=== PATIENT | male | born 1970 | race Caucasian/White ===

== ENCOUNTER 2017-03-31 02:43 | Inpatient (IN) | payer OTHER ==
[2017-03-31] VITALS (19 sets, daily range): BP systolic 113–174; BP diastolic 58–125; PULSE 99–134; RESP 16–32; O2SAT 91–100
[~2017-03-31] VITALS: Ht 177.8 cm; Wt 76.2 kg
[~2017-03-31 02:43] MED LIST: ALBU2.5V4 INHALATION; ALBU8.5H2 INHALATION; Albuterol 2.5 mg/3 mL Inhalation Solution NEB ONE; Albuterol-Ipratropium 3 mL Inhalation Solution ONE; BECL8.7A6 INHALATION; HYDR-4003 PO
[2017-03-31] MEDS ORDERED: Albuterol 2.5 mg/3 mL Inhalation Solution NEB ONE ×2 (02:55→05:45)
[2017-03-31] MEDS ORDERED: MethylprednisoLONE Sodium Succinate 62.5 mg/mL 2 mL Inj IVPUSH ONE (02:55)
[2017-03-31] MEDS ORDERED: Albuterol-Ipratropium 3 mL Inhalation Solution NEB ONE (02:55)
[2017-03-31 03:00] LABS: BASOPHILS % (AUTO) 0.4 % (0-3); EOSINOPHILS % (AUTO) 5.1 % (0-5); MONOCYTES % (AUTO) 7.3 % (4-12); Mean Corpuscular Hemoglobin 29.4 pg (27.0-35.0); Mean Corpuscular Volume 90.2 fL (81-100); NEUTROPHILS % (AUTO) 67.1 % (40-74); Platelet Count 380 bil/L (150-400)
--- NOTE | 2017-03-31 03:25 | ED.REPORT ---
HPI-Dyspnea / Wheezing Date of Service Mar 31, 2017 ED Provider: Tang Marin MD A 47 year old male with a history of asthma and hypertension presents to the ED complaining of respiratory distress. The pt has been experiencing increased difficulty breathing for two days, but this worsened acutely in the last two hours. He is now experiencing significant shortness of breath. Nursing Notes Stated Complaint: DIFFICULTY BREATHING Chief Complaint: Respiratory Distress Nursing Notes Reviewed: Yes Allergies: Coded Allergies: Penicillins (Verified Allergy, Severe, THROAT SWELLS SHUT, 03/20/17) Scheduled Beclomethasone Dipropionate (Qvar) 8.7 Gm Aer.w.adap 1 PUFF INHALATION BID Scheduled PRN Albuterol HFA (Proair HFA) 8.5 Gm Hfa.aer.ad 2 PUFFS INHALATION Q4H PRN PRN For Shortness of Breath Albuterol Neb Soln (Albuterol Neb Soln) 2.5 Mg/3 Ml Vial.neb 2.5 MG INHALATION Q4H PRN PRN For Shortness of Breath Hydrocodone-Acetaminophen 5-325 mg (Hydrocodone-Acetaminophen 5-325 mg) 1 Each Tablet 1-2 TABLET PO BID PRN PRN For Pain General Time Seen by MD: 02:52 Chief Complaint Shortness of breath Hx Obtained From: Patient Sudden in Onset?: No Onset Occurred: 2 days ago Symptom Duration: Since onset Recent Healthcare: No recent hospitalization, Recent doctor visit Similar Sx Previous: No Past Medical History Past Medical History Hypertension Asthma "Intestinal cyst" s/p removal Past Surgical History Removal of right "intestinal cyst" which was initially thought to be an inguinal hernia Smoking History Never Smoker Social History Alcohol Use: "Social" Drug Use: THC Other Social History: Good social support Ambulatory Status Independent Review of Systems Respiratory: Reports: Shortness of breath, Denies: Non-productive cough Musculoskeletal: Denies: Back pain, Neck pain Skin: Denies Rash Complete sys rev & neg: except as marked. GI: Denies: Abdominal pain, Vomiting Physical Exam Initial Vital Signs Vital Signs (First) Date Time Temp Pulse Resp B/P Pulse Ox O2 Delivery O2 Flow Rate FiO2 03/31/17 02:52 123 28 174/125 100 8 03/31/17 02:55 Aerosol Mask 03/31/17 02:56 36.3 Initial VS: Reviewed, Vital signs abnormal General/Constitutional: Awake, Alert Neck: Atraumatic, Supple, Full range of motion, No JVD Respiratory / Chest: Atraumatic, Breath sounds = bilat Resp Distress / Stridor: Positive: Resp distress severe tight wheezing in all lung renee tripoding using accessory muscles Cardiovascular: Heart rate NL, Regular rhythm, Heart sounds NL ENT: Atraumatic, Airway patent Mouth: Positive: Mucous membranes dry Abdomen: Atraumatic, Soft, Non-tender Back: Atraumatic, Full range of motion Lower Extremity / Pelvis / MS: Atraumatic, Full range of motion Skin: Atraumatic, Color NL, No rash, Warm, Dry Neurologic: Oriented X3, Speech NL, No motor deficits, No sensory deficits Head / Eyes: Atraumatic, Normocephalic, PERRL, EOMI Upper Extremity / MS: Atraumatic, Full range of motion Psychiatric: Affect NL, Mood NL Interpretation & Diagnostics Lab Results Interpretation Result Diagram: 03/31/17 0250 03/31/17 0250 Test 03/31/17 02:50 03/31/17 03:10 White Blood Count 13.4th/mm3 (3.8-10.1) Red Blood Count 4.89mil/mm3 (4.40-5.80) Hemoglobin 14.4g/dL (13.8-17.2) Hematocrit 44.1% (41.0-50.0) Mean Corpuscular Volume 90.2fL (81-100) Mean Corpuscular Hemoglobin 29.4pg (27.0-35.0) Mean Corpuscular Hemoglobin Concent 32.7% (32.0-37.0) Red Cell Distribution Width 14.6% (12.3-15.4) Platelet Count 380bil/L (150-400) Neutrophils (%) (Auto) 67.1% (40-74) Lymphocytes (%) (Auto) 19.9% (14-46) Monocytes (%) (Auto) 7.3% (4-12) Eosinophils (%) (Auto) 5.1% (0-5) Basophils (%) (Auto) 0.4% (0-3) Sodium Level 139mEq/L (134-144) Potassium Level 3.9mEq/L (3.5-5.2) Chloride Level 99mEq/L (97-108) Carbon Dioxide Level 27mmol/L (18-29) Blood Urea Nitrogen 20mg/dL (6-24) Creatinine 0.85mg/dL (0.76-1.27) Estimat Glomerular Filtration Rate 103mL/min (>59) Glucose Level 100mg/dL (60-99) Calcium Level 9.6mg/dL (8.5-10.1) Magnesium Level 2.0mg/dL (1.6-2.6) Total Bilirubin 0.2mg/dL (0.0-1.2) Aspartate Amino Transf (AST/SGOT) 18U/L (0-50) Alanine Aminotransferase (ALT/SGPT) 16U/L (0-44) Alkaline Phosphatase 94U/L (25-150) Troponin T 0.010ug/L (0.0-0.011) Pro-B-Type Natriuretic Peptide 24pg/mL (0-121) Total Protein 7.8g/dL (6.4-8.4) Albumin 4.2g/dL (3.4-5.0) Lactic Acid Level 1.2mmol/L (0.4-2.0) Lab Results Interpretation: Elevated white blood count, normal lactic acid X-Ray Chest Interpretation Chest Xray Interpretation: no acute findings Interpretation / Wet Read by: Wet read ED physician Re-Eval/Medical Decision Med Decision/Clinical Course 47-year-old male who presents with an acute exacerbation of asthma. He has moderately severe asthma but has never been admitted or intubated because of it. He has been using his albuterol nebulizer frequently without effect. He is not recently on any steroids. He was treated aggressively with multiple DuoNeb followed by albuterol nebulizer treatments. He was given Solu-Medrol 125 mg IV. He was given magnesium sulfate 2 g IV. Chest x-ray showed no definite infiltrate although there was some patchy density at the apex of the heart. His white count is elevated at 13,500. His lactic acid is normal. His case was discussed with Dr. Lowe and the patient will be admitted to the hospitalist service. Please see inpatient chart for details. Source of Hx: Old records Re-Evaluation/Progress #1: Time of Eval: 03:20 Patient Status: Condition improved Re-Evaluation/Progress Note: Pt rechecked, whose breathing has improved. Additional physical exam is performed. Re-Evaluation/Progress #2: Time of Eval: 05:37 Re-Evaluation/Progress Note: Pt rechecked, who is resting. His condition has improved significantly. Plan for additional nebulizer treatment is discussed. Re-Evaluation/Progress #3: Time of Eval: 06:50 Re-Evaluation/Progress Note: Pt rechecked, whose wheezing has improved. Re-Evaluation/Progress #4: Time of Eval: 07:37 Patient Status: Condition improved Re-Evaluation/Progress Note: Pt rechecked, is still wheezing. The diagnosis and plan for admission are discussed. The pt understands and agrees with the plan. All questions are addressed at this time. Counseled Regarding: Diagnosis, Lab results, Need for admission Discharge & Departure Impression: Primary Impression: Status asthmaticus Asthma severity: unspecified severity Qualified Code: J45.902 - Unspecified asthma with status asthmaticus Disposition: ADMITTED TO HOSPITAL Discharge Condition All VS Reviewed: Yes Condition: Stable Referrals: [facility] Crit Care Except Billable Proc Time Spent: 30-74 minutes Services Performed: Patient management by me, Time spent at bedside, Reviewing test results, Reviewing imaging, Discussing patient care, Documentation in record Critical Care Notes: 70 minutes of one-to-one care with this patient in status asthmaticus. Scribe Attestation Portions of this note were transcribed by Wiliam Mata. I, Dr. Marin personally performed the history, physical exam and medical decision-making; I reviewed and confirmed the accuracy of the information in the transcribed note. Signed by: Regina Pascual, 03/31/2017 and 0750. copies to: [facility] Tang Marin MD Mar 31, 2017 03:25 WILIAM MATA Mar 31, 2017 03:33
[2017-03-31 03:28] LABS: TROPONIN T 0.01 ug/L (0.0-0.011)
[2017-03-31] MEDS ORDERED: Magnesium Sulfate 4 Gm/100 mL Water Premix IV ONE (03:36)
[2017-03-31] MEDS ORDERED: Polyethylene Glycol (PEG) 17 Gm Powder PO PRN (08:15)
[2017-03-31] MEDS ORDERED: HYDROcodone-APAP 5-325 mg Tablet PO PRN ×2 (08:15→14:45)
[2017-03-31] MEDS ORDERED: Ondansetron 2 mg/mL 2 mL Inj IVPUSH PRN (08:15)
--- NOTE | 2017-03-31 08:19 | PCM.HPMED ---
Subjective Date of Service Mar 31, 2017 Primary Provider: Admitting Physician: Primary Care Physician: Jackeline Attending Physician: Chief Complaint: Worsening shortness of breath History of Present Illness: Patient is a 47-year-old male past medical history significant for asthma and hypertension presenting to the emergency room for an acute worsening of his shortness of breath over the past couple of days but most seriously over the last few hours. He notes he is actively been more short of breath than usual for the last month but over the past couple days things become more severe. He has chronic asthma generally maintained in good control with daily medication Qvar and when necessary albuterol. He noted beating more frequent administrations of albuterol which is becoming less effective especially over the past 24 hours finally prompting presentation to the emergency department. On presentation to emergency room history provided numerous interventions including high-dose steroids and magnesium conjunction with submental oxygen which helped patient to stabilize some bili continued to demonstrate significant increased work of breathing and diffuse wheezing which prompted admission for continued medical evaluation and treatment. During my evaluation of patient he is lying in hospital bed still demonstrating a significant work of breathing reported to be much improved since his presentation to hospital. Neither any recent fever chills or sweats. Reports albuterol as helped some but has not helped completely catch his breath in recent days. He has no other acute complaints at this time. His appetite has been good but currently he denies any hunger also denies any nausea or vomiting. He denies any history of seasonal allergies though he does have a family history of allergies. Review of Systems: A 10 point review of systems is conducted and entirely negative excepting pertinent positives and negatives included above history of present illness Allergies Coded Allergies: Penicillins (Verified Allergy, Severe, THROAT SWELLS SHUT, 03/20/17) Home Medications Beclomethasone Dipropionate (Qvar) 8.7 Gm Aer.w.adap 1 PUFF INHALATION BID Scheduled PRN Albuterol HFA (Proair HFA) 8.5 Gm Hfa.aer.ad 2 PUFFS INHALATION Q4H PRN PRN For Shortness of Breath Albuterol Neb Soln (Albuterol Neb Soln) 2.5 Mg/3 Ml Vial.neb 2.5 MG INHALATION Q4H PRN PRN For Shortness of Breath Hydrocodone-Acetaminophen 5-325 mg (Hydrocodone-Acetaminophen 5-325 mg) 1 Each Tablet 1-2 TABLET PO BID PRN PRN For Pain PMH Hypertension Asthma "Intestinal cyst" s/p removal Surgical History Removal of right "intestinal cyst" which was initially thought to be an inguinal hernia Family History Cardiovascular disease and seasonal allergies on both mother and father's side Social History Hx Alcohol Use: Yes (occasionally) Hx Substance Use: Yes (Marijuana) Smoking Status: Never Smoker Exam Vital Signs Vital Sign - Last Date Time Temp Pulse Resp B/P Pulse Ox O2 Delivery O2 Flow Rate FiO2 03/31/17 07:12 101 21 124/69 97 Room Air 03/31/17 06:01 3 03/31/17 02:56 36.3 General: Alert, Oriented X3, Cooperative, Moderate Distress Eyes: PERRLA, EOMI Mouth: Mucous Membranes Dry, Other (lips pursed) Chest & Lungs: Other (diffuse inspiratory and expiratory wheezes without focal consolidation or diminished breath) Cardiovascular: No Murmurs/Rubs/Gallops, Other (regular rhythm, elevated right) Abdomen: Non-tender, Non-distended Extremities: No cyanosis/clubbing/edma bilat Neurological: Grossly Neurologically Intact, Cranial Nerves 2-12 Intact Lab and Diagnostics Result Diagram: 03/31/17 0250 03/31/17 0250 Assessment & Plan 47 YO M presenting with worsening shortness of breath, treated in ER with refractory condition, admitted for further medical evaluation and treatment. #Acute respiratory failure with hypoxia and hypercapnea - We will treat underlying condition as noted below - Patient is currently in guarded condition demonstrating significant accessory respiratory muscle use - Certainly requires close medical observation, a require further intervention and ventilatory support such as BiPAP or potentially even intubation should patient's medical condition continued to decline. - Most likely cause appears reactive airway disease, though patient temperatures a mild elevation of white blood cell count, normal pro calcitonin level , and essentially normal radiologic findings are not overly suggestive of infectious process such as pneumonia which would require antibiotic therapy. - See below for plans of immediate intervention # Status Asthmaticus: - Continue Solumedrol now IV 30mg Q8H - Duonedbs PRN - Continue patient's on Qvar - Viral PCR is pending - Continue supplemental oxygen as needed # Hypertension - Pt on no home medications - HDS - Continue to monitor #Left inguinal cyst - Patient has previous history of right internal cyst which is already been surgically removed. I reviewed and confirms this was not a hernia but rather assist as he was described by surgeon - He is pending medical clearance for removal of similar cyst on left side at this time. - No plan for interventions however our evaluation during this hospitalization may suffice for hospital clearance given his young age and lack of comorbidities. Given severity of respiratory compromise and his pain patient with a greater than 2 midnights for medical stabilization and discharge . Pain Evaluation: Adequate Pain Control GI Prophylaxis: Not indicated VTE Mechanical Devices: Intermittant Pneumatic CD Resuscitation Status: CPR: Attempt Resuscitation Time spent 55 minutes Pablito Lowe DO Mar 31, 2017 08:19
--- NOTE | 2017-03-31 08:20 | DRSVH ---
PROCEDURE: X-RAY CHEST ONE VIEW, PORTABLE ([id number]) INDICATIONS: resp distress TECHNIQUE: One view of the chest was acquired. COMPARISON: None. FINDINGS: Surgical changes and devices: None. Lungs and pleura: No pleural effusions or pneumothorax. There is radiodensity at the cardiac apex wh ich may represent epicardial fat-pad, scarring or focal pneumonia. No associated effusion. Just super ior to that is soft tissue density that extends outside of the lung compatible with breast tissue. Th e right lung field is clear. Mediastinum: Mediastinal contours appear normal. Heart size is normal. Bones and chest wall: No suspicious bony lesions. Overlying soft tissues appear unremarkable. IMPRESSION: 1. Nonspecific radiodensity at the left lung base adjacent to the cardiac apex. Pneumonia versus epic ardial fat-pad, atelectasis or scarring. In absence of prior exams, further followup and clinical cor relation recommended. Note: Findings discussed with Dr. Marin in the ER at 0817 hrs. on 03/31/2017 Dictated by: Tristian Ballesteros M.D. on 03/31/2017 at 8:15 Approved by: Tristian Ballesteros M.D. on 03/31/2017 at 8:18
[2017-03-31] MEDS ORDERED: Glucose 40% Oral Gel 15 Gm Tube PO PRN (08:25)
[2017-03-31] MEDS: MethylprednisoLONE Sodium Succinate 40 mg/mL Inj IVPUSH SCH ×2 (09:18→17:02)
[2017-03-31] MEDS: Albuterol-Ipratropium 3 mL Inhalation Solution NEB SCH ×5 (09:25→23:54)
--- NOTE | 2017-03-31 09:50 | NUR ---
ADMIT Admitted a 47/M into room 3026 following report from ANILA Yanes RN. Pt A&Ox4, reports feeling exhausted as he was up all night. No audible wheezing noted. Pt on 4L 02 via NC while eating, switch back to OxyMask when done. Pt denies any SOB at this time. Req to eat and be allowed to rest. A&Ox4, denies any pain at this time. Able to transfer from stretcher to bed ind. Introduced to staff, bed/call light controls. Bed in lowest, locked position and call light in reach.
--- NOTE | 2017-03-31 10:06 | NUR ---
Admit nurse: Pt admitted with asthma, continuous pulse ox in place. Discussed med rec with pt in ED, pt verified meds. During second visit, unable to get pt to wake and answer admit questions, admit completed with medical records, primary RN aware. Allergy sticker in place, pt screens at being high risk for sleep apnea.
[2017-03-31] MEDS: Albuterol 2.5 mg/3 mL Inhalation Solution NEB PRN ×2 (11:14→15:16)
[2017-03-31] MEDS ORDERED: _HYDROcodone/APAP 5-325 mg Tablet PO PRN (14:20)
[2017-03-31] MEDS: Insulin LISPRO 300 Unit/3 mL Inj SUBQ SCH ×3 (14:46→21:00)
[2017-03-31] MEDS: Alum-Mag Hydrox-Simeth 30 mL Suspension PO PRN (18:19)
--- NOTE | 2017-03-31 18:26 | NUR ---
Resp Pt reports he is breathing much "easier" since administration of nebs and steroids. Pt's blood sugars have been elevated -290 and 270. Insulin given per sliding scale. Pt had one c/o abdominal pain and nausea, PRN antiemetic and analgesic effective. Pt on 2L via NC, CPOX in place and 02 running high 90's. Bed in lowest, locked position and call light in reach.
[2017-03-31] MEDS: Fluticasone 100 mCg Inhaler INHALATION SCH (23:18)
[2017-04-01] VITALS (14 sets, daily range): BP systolic 115–135; BP diastolic 56–81; PULSE 91–128; RESP 18–26; O2SAT 90–97
[2017-04-01] MEDS: MethylprednisoLONE Sodium Succinate 40 mg/mL Inj IVPUSH SCH ×3 (00:27→16:38)
[2017-04-01] MEDS: Albuterol-Ipratropium 3 mL Inhalation Solution NEB SCH ×5 (04:30→19:43)
--- NOTE | 2017-04-01 07:04 | NUR ---
O2 Sats On 1L most of the night, sometimes breathing fine after neb trx will take off oxygen and remain in 90's. Back on 1L this AM after coughing session.
[2017-04-01] MEDS: Insulin LISPRO 300 Unit/3 mL Inj SUBQ SCH ×4 (08:00→21:41)
[2017-04-01] MEDS: Fluticasone 100 mCg Inhaler INHALATION SCH ×3 (08:30→21:41)
[2017-04-01] MEDS: Albuterol 2.5 mg/3 mL Inhalation Solution NEB PRN ×2 (09:12→13:06)
--- NOTE | 2017-04-01 12:54 | PCM.PNMED ---
Subjective Date of Service Apr 01, 2017 Subjective He is seen today in his room to follow-up the acute bronchospasm of his long- term asthma. He also has an interesting condition that looks like a left inguinal hernia. He says he has had a prior right inguinal surgery that revealed that this condition is actually a cyst of the lower GI tract. He says he was referred to a surgeon, who he has never met, and does not know the name of, to have this removed a few days ago. 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 He wanted everything to be done by then. He does not have a primary care physician and states that he has never been to a morning nanny or assignment desk assistant for this severe asthma. He gets his inhalers by periodic ER visits. Exam Vital Signs Vital Sign - Last Date Time Temp Pulse Resp B/P Pulse Ox O2 Delivery O2 Flow Rate FiO2 04/01/17 09:12 118 26 92 Nasal Cannula 2.00 04/01/17 09:11 36.8 135/80 Intake and Output 03/31/17 03/31/17 04/01/17 Cumulative From/Thru 15:00 23:00 07:00 03/31/17 02:52 - 04/01/17 06:33 Intake Total 1072 ml 400 ml 1472 ml Balance 1072 ml 400 ml 1472 ml Intake Oral 1072 ml 400 ml 1472 ml # Voids 2 2 4 # Bowel Movements 0 0 Exam Alert and oriented without apparent distress. Heart is regularly tachycardic without murmu Lungs have significant wheezing right more than left. Abdomen there is a significant left inguinal area of swelling consistent with a hernia. He does have a scar on the right inguinal area from his previous surgery. There is no ankle edema. Lab and Diagnostics Result Diagram: 03/31/17 0250 03/31/17 0250 X-Rays, CTs and MRIs [facility] Diagnostic [place] [address] Patient Name: VIPUL GARNICA MR#: [id number] Location: [facility] [place] Ordering Phys: Tang Marin MD Date of Service: 03/31/17 0249 PROCEDURE: X-RAY CHEST ONE VIEW, PORTABLE ([id number]) INDICATIONS: resp distress TECHNIQUE: One view of the chest was acquired. COMPARISON: None. FINDINGS: Surgical changes and devices: None. Lungs and pleura: No pleural effusions or pneumothorax. There is radiodensity at the cardiac apex which may represent epicardial fat-pad, scarring or focal pneumonia. No associated effusion. Just superior to that is soft tissue density that extends outside of the lung compatible with breast tissue. The right lung field is clear. Mediastinum: Mediastinal contours appear normal. Heart size is normal. Bones and chest wall: No suspicious bony lesions. Overlying soft tissues appear unremarkable. IMPRESSION: 1. Nonspecific radiodensity at the left lung base adjacent to the cardiac apex. Pneumonia versus epicardial fat-pad, atelectasis or scarring. In absence of prior exams, further followup and clinical correlation recommended. Note: Findings discussed with Dr. Marin in the ER at 0817 hrs. on 03/31/2017 Dictated by: Tristian Ballesteros M.D. on 03/31/2017 at 8:15 Approved by: Tristian Ballesteros M.D. on 03/31/2017 at 8:18 Assessment & Plan 47 YO M presenting with worsening shortness of breath, treated in ER with refractory condition, admitted yesterday for further medical evaluation and treatment. #Acute respiratory failure with hypoxia and hypercapnea - We will treat underlying condition as noted below - Patient is currently in an improved condition without significant accessory muscle use currently - Certainly requires close medical observation, a require further intervention and ventilatory support such as BiPAP or potentially even intubation should patient's medical condition reverse and resume to decline. - Most likely cause appears reactive airway disease, though patient temperatures a mild elevation of white blood cell count, normal pro calcitonin level , and essentially normal radiologic findings are not overly suggestive of infectious process such as pneumonia which would require antibiotic therapy. - See below for plans of immediate intervention # Status Asthmaticus: - Continue Solumedrol now IV 40mg Q8H - Duonedbs PRN - Continue patient's on Qvar - Viral PCR is negative - Continue supplemental oxygen as needed # Hypertension - Pt on no home medications - HDS - Continue to monitor #Left inguinal cyst - Patient has previous history of right internal cyst which is already been surgically removed. I reviewed and confirms this was not a hernia but rather a cyst as he was described by surgeon - He is pending medical clearance for removal of similar cyst on left side at this time. - No plan for interventions however our evaluation during this hospitalization may suffice for hospital clearance given his young age and lack of comorbidities. Given severity of respiratory compromise and his pain patient with a greater than 2 midnights for medical stabilization and discharge. I have suggested to him that he may indeed be able to be out of here in the next 2 days and make it to his next scheduled work day of Monday. There is however no way that his left inguinal surgery can occur anytime soon. GI Prophylaxis: Not indicated VTE Mechanical Devices: Intermittant Pneumatic CD Resuscitation Status: CPR: Attempt Resuscitation Rubi Pearson MD Apr 01, 2017 09:28
--- NOTE | 2017-04-01 17:22 | NUR ---
Activity/Resp Patient a/o x 4, denies pain or nausea, but c/o sob. Lungs decreased bilat this a.m. receiving neb tx scheduled and PRN per RTC. Patient sleeping intermittently this a.m. Patient oob showered indep and went for a walk this afternoon, returned to room approx 1 hr later, RR 24-28 min, HR 130's, patient denied chest pain. Lungs with wheezes throughout. Neb tx given per RTC. Patient lui diet well. VSS, tele d/c'd per md orders.
[2017-04-02 00:21] VITALS: PULSE 114; RESP 18; O2SAT 96
[2017-04-02] MEDS: Albuterol-Ipratropium 3 mL Inhalation Solution NEB SCH ×4 (00:21→11:29)
[2017-04-02] MEDS: MethylprednisoLONE Sodium Succinate 40 mg/mL Inj IVPUSH SCH ×2 (00:29→08:44)
[2017-04-02 00:30] VITALS: BP 131/69; PULSE 59; RESP 20; O2SAT 96
[2017-04-02 04:54] VITALS: BP 126/64; PULSE 105; RESP 20; O2SAT 97
[2017-04-02] MEDS: Alum-Mag Hydrox-Simeth 30 mL Suspension PO PRN (05:45)
[2017-04-02 07:18] VITALS: PULSE 118; RESP 20; O2SAT 95
--- NOTE | 2017-04-02 07:19 | NUR ---
Respiratory Pt denies SOB. Tolerating activities well. No overt complications noted.
[2017-04-02] MEDS: Insulin LISPRO 300 Unit/3 mL Inj SUBQ SCH (08:00)
[2017-04-02] MEDS: Fluticasone 100 mCg Inhaler INHALATION SCH (08:44)
[2017-04-02] MEDS ORDERED: PRE20 PO (10:04)
[2017-04-02] MEDS ORDERED: BECL8.7A6 INHALATION (10:04)
[2017-04-02] MEDS ORDERED: ALBU2.5V4 INHALATION (10:04)
[2017-04-02] MEDS ORDERED: ALBU8.5H2 INHALATION (10:04)
--- NOTE | 2017-04-02 10:10 | PCM.DIMED ---
Discharge Instructions Date of Service Apr 02, 2017 Dates of Hospitalization Mar 31, 2017 at 08:37 Discharge Diagnosis Discharge Diagnosis #Acute respiratory failure with hypoxia and hypercapnea # Status Asthmaticus: # Hypertension #Left inguinal cyst Diet Discharge Diet: No restrictions Activity Discharge Activity: No restrictions Call your provider Call your provider for: Fever or Chills, Shortness of breath, Chest pain Patient Instructions Follow-up plan You need to follow up with a primary doctor right away. Please work on making an appointment starting on Monday. I would suggest you call the [facility]. You also need to start treatment for your severe Asthma with an Geometry Tutor or Route Aide. You should try to see one of those specialists in April. Follow-up with PCP in: 1 week (For preop of the left inguinal cyst) Provider: Annamarie Bob MD Follow-up in: 1 week (With a General Surgeon for the left inguinal cyst) Rubi Pearson MD Apr 02, 2017 10:10
--- NOTE | 2017-04-02 10:13 | NUR ---
Social Work: Screening / Discharge Data: Pt is a 47 y/o male admitted for status asthmaticus. Pt's PCP is not listed. Pt's insurance is self pay. EMR reviewed, D/C orders are in. Pt discussed in rounds. MD states no d/c planning needs at this time. Pt is homeless. ANALYSIS SPECIALIST left [facility] application and asked if he would like any further resources, pt declined any further needs. ANALYSIS SPECIALIST left phone number if he has any questions before d/c. No further d/c planning needs at this time. ANALYSIS SPECIALIST will continue to follow if needs arise. Assessment: Pt who is independent at baseline. Plan: Pt will return to homelessness at discharge. [facility] application given. Pt declined further needs. No further d/c planning needs at this time. ANALYSIS SPECIALIST will continue to follow if needs arise. [facility]
[2017-04-02 11:11] VITALS: BP 147/75; PULSE 96; RESP 19; O2SAT 93
[2017-04-02 11:30] VITALS: PULSE 108; RESP 20; O2SAT 89
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
--- NOTE | 2017-04-02 13:37 | PCM.DC.MED ---
Discharge Summary Date of Service Apr 02, 2017 Dates of Hospitalization Date of Hospital Admission Mar 31, 2017 at 08:37 Date of Discharge: Apr 02, 2017 Providers: Admitting Physician: Pablito Lowe DO Primary Care Physician: Jackeline Attending Physician: Pablito Lowe DO Diagnosis at Time of Discharge Diagnosis at Time of Discharge #Acute respiratory failure with hypoxia and hypercapnea # Status Asthmaticus: # Hypertension #Left inguinal cyst Procedures XRay, CTs & MRIs [facility] Diagnostic Imaging Department [place], [place] [id number] Patient Name: VIPUL GARNICA MR#: [id number] Location: [facility] Ordering Phys: Tang Marin MD Date of Service: 03/31/17 0249 PROCEDURE: X-RAY CHEST ONE VIEW, PORTABLE ([id number]) INDICATIONS: resp distress TECHNIQUE: One view of the chest was acquired. COMPARISON: None. FINDINGS: Surgical changes and devices: None. Lungs and pleura: No pleural effusions or pneumothorax. There is radiodensity at the cardiac apex which may represent epicardial fat-pad, scarring or focal pneumonia. No associated effusion. Just superior to that is soft tissue density that extends outside of the lung compatible with breast tissue. The right lung field is clear. Mediastinum: Mediastinal contours appear normal. Heart size is normal. Bones and chest wall: No suspicious bony lesions. Overlying soft tissues appear unremarkable. IMPRESSION: 1. Nonspecific radiodensity at the left lung base adjacent to the cardiac apex. Pneumonia versus epicardial fat-pad, atelectasis or scarring. In absence of prior exams, further followup and clinical correlation recommended. Note: Findings discussed with Dr. Marin in the ER at 0817 hrs. on 03/31/2017 Dictated by: Tristian Ballesteros M.D. on 03/31/2017 at 8:15 Approved by: Tristian Ballesteros M.D. on 03/31/2017 at 8:18 Brief History Patient is a 47-year-old male past medical history significant for asthma and hypertension presenting to the emergency room for an acute worsening of his shortness of breath over the past couple of days but most seriously over the last few hours. He notes he is actively been more short of breath than usual for the last month but over the past couple days things become more severe. He has chronic asthma generally maintained in good control with daily medication Qvar and when necessary albuterol. He noted beating more frequent administrations of albuterol which is becoming less effective especially over the past 24 hours finally prompting presentation to the emergency department. On presentation to emergency room history provided numerous interventions including high-dose steroids and magnesium conjunction with submental oxygen which helped patient to stabilize some bili continued to demonstrate significant increased work of breathing and diffuse wheezing which prompted admission for continued medical evaluation and treatment. During my evaluation of patient he is lying in hospital bed still demonstrating a significant work of breathing reported to be much improved since his presentation to hospital. Neither any recent fever chills or sweats. Reports albuterol as helped some but has not helped completely catch his breath in recent days. He has no other acute complaints at this time. His appetite has been good but currently he denies any hunger also denies any nausea or vomiting. He denies any history of seasonal allergies though he does have a family history of allergies. Hospital Course #Acute respiratory failure with hypoxia and hypercapnea - His functional status has improved but the wheezing and bronchospasm sound just as severe as before. He is not going to be staying in the hospital any longer, he has made that clear. - Patient is currently in an improved condition without significant accessory muscle use currently - He is discharged home in guarded condition. 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 # Status Asthmaticus: - Continue on oral prednisone taper at home. - Continue patient's on Qvar - Continue albuterol. - Strongly encouraged to make a primary care physician appointment and then allergy versus pulmonology to coordinate treatment of his severe asthma condition. # Hypertension/hyperglycemia - Blood pressure has normalized. - Mild intermittent hyperglycemia noted and so an A1c was drawn yesterday and is still pending. #Left inguinal cyst - Patient has previous history of right internal cyst which is already been surgically removed. I reviewed and confirms this was not a hernia but rather a cyst as he was described by surgeon - He is pending medical clearance for removal of similar cyst on left side at this time. - No plan for interventions however our evaluation during this hospitalization may suffice for hospital clearance given his young age and lack of comorbidities. - Encouraged to call Dr. Bob's office on Monday to make another appointment. Exam Vital Signs (Last) Date Time Temp Pulse Resp B/P Pulse Ox O2 Delivery O2 Flow Rate FiO2 04/02/17 07:18 118 20 95 Nasal Cannula 2.00 04/02/17 04:54 36.4 126/64 Exam Alert and oriented 3. Up and walking in the hallways wearing his home clothing. Heart is regular rhythm and tachycardic Lungs have heavy wheezing bilaterally. There is no ankle edema Test 03/31/17 02:50 03/31/17 03:10 04/01/17 20:30 White Blood Count 13.4th/mm3 (3.8-10.1) Red Blood Count 4.89mil/mm3 (4.40-5.80) Hemoglobin 14.4g/dL (13.8-17.2) Hematocrit 44.1% (41.0-50.0) Mean Corpuscular Volume 90.2fL (81-100) Mean Corpuscular Hemoglobin 29.4pg (27.0-35.0) Mean Corpuscular Hemoglobin Concent 32.7% (32.0-37.0) Red Cell Distribution Width 14.6% (12.3-15.4) Platelet Count 380bil/L (150-400) Neutrophils (%) (Auto) 67.1% (40-74) Lymphocytes (%) (Auto) 19.9% (14-46) Monocytes (%) (Auto) 7.3% (4-12) Eosinophils (%) (Auto) 5.1% (0-5) Basophils (%) (Auto) 0.4% (0-3) Sodium Level 139mEq/L (134-144) Potassium Level 3.9mEq/L (3.5-5.2) Chloride Level 99mEq/L (97-108) Carbon Dioxide Level 27mmol/L (18-29) Blood Urea Nitrogen 20mg/dL (6-24) Creatinine 0.85mg/dL (0.76-1.27) Estimat Glomerular Filtration Rate 103mL/min (>59) Glucose Level 100mg/dL (60-99) Calcium Level 9.6mg/dL (8.5-10.1) Magnesium Level 2.0mg/dL (1.6-2.6) Total Bilirubin 0.2mg/dL (0.0-1.2) Aspartate Amino Transf (AST/SGOT) 18U/L (0-50) Alanine Aminotransferase (ALT/SGPT) 16U/L (0-44) Alkaline Phosphatase 94U/L (25-150) Troponin T 0.010ug/L (0.0-0.011) Pro-B-Type Natriuretic Peptide 24pg/mL (0-121) Total Protein 7.8g/dL (6.4-8.4) Albumin 4.2g/dL (3.4-5.0) Procalcitonin 0.04ng/mL (0.00-0.08) Lactic Acid Level 1.2mmol/L (0.4-2.0) Hold Curry Top Tube Received (Received) Discharge Medications Discharge Medications Beclomethasone Dipropionate (Qvar) 8.7 Gm Aer.w.adap 1 PUFF INHALATION BID Prescribed by: NEHAL PEARSON MD Prednisone (PredniSONE) 20 Mg Tablet 20 MG PO BID Take one twice a day for 3 days, then 1/2 tab twice a day for three days, then 1/2 tab daily until finished. Prescribed by: NEHAL PEARSON MD As needed Albuterol HFA (Proair HFA) 8.5 Gm Hfa.aer.ad 2 PUFFS INHALATION Q4H PRN PRN For Shortness of Breath Prescribed by: NEHAL PEARSON MD Albuterol Neb Soln (Albuterol Neb Soln) 2.5 Mg/3 Ml Vial.neb 2.5 MG INHALATION Q4H PRN PRN For Shortness of Breath Prescribed by: NEHAL PEARSON MD Hydrocodone-Acetaminophen 5-325 mg (Hydrocodone-Acetaminophen 5-325 mg) 1 Each Tablet 1-2 TABLET PO BID PRN PRN For Pain Prescribed by: GONZALES WHITTINGTON MD Followup Plan Follow-up plan You need to follow up with a primary doctor right away. Please work on making an appointment starting on Monday. I would suggest you call the [facility]. 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 You should try to see one of those specialists in April. Discharge Diet: No restrictions Discharge Activity: No restrictions Follow-up with PCP in: 1 week (For preop of the left inguinal cyst) Provider: Annamarie Bob MD Follow-up in: 1 week (With a General Surgeon for the left inguinal cyst) Rubi Pearson MD Apr 02, 2017 10:10
== END 2017-04-02 11:55 | disposition home or self-care (01) | DRG 189 ==
LOC: SED 02:43 → MPC 08:37
PROVIDERS: ADMIT Family Medicine; ATTEND Family Medicine
DX: J96.01 Acute respiratory failure with hypoxia (principal); J45.902 Unspecified asthma with status asthmaticus; J96.02 Acute respiratory failure with hypercapnia; I10 Essential (primary) hypertension; R19.09 Other intra-abdominal and pelvic swelling, mass and lump

== ENCOUNTER 2017-04-16 19:49 | Emergency (ER) | payer OTHER ==
[~2017-04-16] VITALS: Ht 177.8 cm; Wt 90.9 kg
[~2017-04-16 19:49] MED LIST changes: -Albuterol 2.5 mg/3 mL Inhalation Solution NEB ONE; -Albuterol-Ipratropium 3 mL Inhalation Solution ONE; +PRE20 PO
[2017-04-16 19:51] VITALS: BP 143/102; PULSE 120; RESP 22; O2SAT 98
[2017-04-16] MEDS ORDERED: Albuterol-Ipratropium 3 mL Inhalation Solution NEB ONE ×2 (20:00→21:00)
[2017-04-16 20:12] VITALS: PULSE 123; RESP 22; O2SAT 94
--- NOTE | 2017-04-16 20:14 | ED.REPORT ---
HPI-Abd Pain M 40 and Over Date of Service Apr 16, 2017 ED Provider: Dr. Johns 47 y/o male with a hx of asthma and hypertension presents to the ED complaining of painful left inguinal cyst for over two weeks. The pt was scheduled for a surgery 2 weeks ago but it was canceled as he went into respiratory arrest due to his asthma. The pt has not rescheduled the surgery. He came to the ED today because the pain has been unbearable. The pt states he has a similar growth of the "size of a soft ball" on the right inguinal area. It was initially believed to be a hernia but was later determined to be cyst that was surgically removed. He had to get fluid removed from it a couple of times.The pt also complains of swollen left arm since the cancelled surgery two weeks ago. He states it feels "more tight and red". The pt is wheezing in the ED and was given Albuterol in triage. Nursing Notes Stated Complaint: GROIN PAIN Chief Complaint: Male Abdominal Pain Nursing Notes Reviewed: Yes Allergies: Coded Allergies: Penicillins (Verified Allergy, Severe, THROAT SWELLS SHUT, 04/16/17) Scheduled Beclomethasone Dipropionate (Qvar) 8.7 Gm Aer.w.adap 1 PUFF INHALATION BID Cephalexin (Cephalexin) 500 Mg Capsule 500 MG PO TID Prednisone (PredniSONE) 20 Mg Tablet 20 MG PO BID Take one twice a day for 3 days, then 1/2 tab twice a day for three days, then 1/2 tab daily until finished. Prednisone (PredniSONE) 20 Mg Tablet 40 MG PO DAILY Scheduled PRN Albuterol HFA (Proair HFA) 8.5 Gm Hfa.aer.ad 2 PUFFS INHALATION Q4H PRN PRN For Shortness of Breath Albuterol Neb Soln (Albuterol Neb Soln) 2.5 Mg/3 Ml Vial.neb 2.5 MG INHALATION Q4H PRN PRN For Shortness of Breath Hydrocodone-Acetaminophen 5-325 mg (Hydrocodone-Acetaminophen 5-325 mg) 1 Each Tablet 1-2 TABLET PO BID PRN PRN For Pain General Time Seen by MD: 20:13 Chief Complaint Inguinal pain left (cyst), Other Hx Obtained From: Patient Arrived By: Walk-in Sudden in Onset?: Yes Onset Occurred: More than a week ago... (2 weeks) Symptom Duration: Since onset Progression since Onset: Gradually worsening Quality: Painful Radiation: : Does not radiate Severity: Current: Severe Severity: Maximum: Severe Recent Healthcare: Recent doctor visit Similar Sx Previous: Yes Past Medical History Past Medical History Hypertension Asthma "Intestinal cyst" s/p removal Past Surgical History Removal of right "intestinal cyst" which was initially thought to be an inguinal hernia Smoking History Never Smoker Social History Alcohol Use: "Social" Drug Use: THC Other Social History: Good social support Ambulatory Status Independent Review of Systems Reports: painful left inguinal cyst Reports: left arm redness Respiratory: Reports: Wheezing Musculoskeletal: Reports: Extremity swelling (left arm) Complete sys rev & neg: except as marked. Physical Exam Initial Vital Signs Vital Signs (First) Date Time Temp Pulse Resp B/P Pulse Ox O2 Delivery O2 Flow Rate FiO2 04/16/17 19:51 36.6 120 22 143/102 98 Room Air Initial VS: Reviewed, Vital signs abnormal Head / Eyes: Atraumatic, Normocephalic Neck: Supple, Non-tender, Full range of motion Skin: Warm, Dry, No cyanosis Neurologic: Alert, Oriented, Nonfocal General/Constitutional: Awake, Alert, Cooperative Respiratory / Chest: Atraumatic, Breath sounds = bilat, No rales, No rhonchi Wheezing / Retractions: Positive: Wheezing expiratory Cardiovascular: Heart rate NL, Regular rhythm, Heart sounds NL, No gallop, No murmurs, No rubs Abdomen: Atraumatic, Soft, Non-tender Back: Atraumatic, Full range of motion, Painless range of motion Upper Extremity / MS: Atraumatic, Full range of motion, No deformity, Neurologic intact, Vascular intact Swelling and redness to post distal left arm with some warmth. Lower Extremity / Pelvis / MS: Atraumatic, No swelling, No deformity, Neurologic intact, Vascular intact Growth to left groin with tenderness and warmth. No redness. Interpretation & Diagnostics Lab Results Interpretation Result Diagram: 04/16/17201404/16/17 2015 Test 04/16/17 20:15 White Blood Count 14.4th/mm3 (3.8-10.1) Red Blood Count 4.70mil/mm3 (4.40-5.80) Hemoglobin 14.2g/dL (13.8-17.2) Hematocrit 43.9% (41.0-50.0) Mean Corpuscular Volume 93.4fL (81-100) Mean Corpuscular Hemoglobin 30.2pg (27.0-35.0) Mean Corpuscular Hemoglobin Concent 32.3% (32.0-37.0) Red Cell Distribution Width 14.7% (12.3-15.4) Platelet Count 372bil/L (150-400) Neutrophils (%) (Auto) 73.4% (40-74) Lymphocytes (%) (Auto) 14.1% (14-46) Monocytes (%) (Auto) 7.4% (4-12) Eosinophils (%) (Auto) 4.6% (0-5) Basophils (%) (Auto) 0.2% (0-3) Hold Purple Top Tube Received (Received) Hold Blue Top Tube Received (Received) Sodium Level 139mEq/L (134-144) Potassium Level 4.5mEq/L (3.5-5.2) Chloride Level 98mEq/L (97-108) Carbon Dioxide Level 26mmol/L (18-29) Blood Urea Nitrogen 19mg/dL (6-24) Creatinine 1.11mg/dL (0.76-1.27) Estimat Glomerular Filtration Rate 76mL/min (>59) Glucose Level 133mg/dL (60-99) Calcium Level 9.1mg/dL (8.5-10.1) Magnesium Level 1.9mg/dL (1.6-2.6) Hold Red Top Tube Received (Received) Hold [place] Top Tube Received (Received) Hold Curry Top Tube Received (Received) Re-Eval/Medical Decision Med Decision/Clinical Course The patient has multiple complaints. As far his left inguinal pain, he has a known cyst and needs to have surgery. There is no sign of infection over the area and no change other than increased pain per the patient. As far as his respiratory status the patient is not able to afford the inhaled steroid and so was given another course of prednisone. As far as his left arm looks like he has a mild cellulitis, he does not have any systemic signs of illness. The patient was noted to be tachycardiac which could be related to his respiratory status, his pain, and possibly mild dehydration. His tachycardia improved while here. The patient does not appear to have an acute surgical process or other condition requiring admission. Time of Eval: 22:40 Re-Evaluation/Progress Note: Rechecked pt. Discussed lab results, diagnosis and plan to discharge. Pt understands and agrees with the plan. F/U instructions and RTER warning given. All questions addressed. Counseled Regarding: Diagnosis, Lab results, Need for follow-up, When/why to return to ED Discharge & Departure Primary Impression: Ganglion cyst of left groin Additional Impressions: Left arm cellulitis Asthma exacerbation Disposition: Home Vital Signs - All Vital Signs Date Time Temp Pulse Resp B/P Pulse Ox O2 Delivery O2 Flow Rate FiO2 04/16/17 23:36 36.8 93 15 113/75 94 Room Air 04/16/17 22:45 86 14 133/86 100 Room Air 04/16/17 21:43 98 20 96 Room Air 04/16/17 20:12 123 22 94 Room Air 04/16/17 19:51 36.6 120 22 143/102 98 Room Air )( All Prior VS Reviewed: Yes Condition: Improved Patient Instructions: Ganglion Cysts (ED) Additional Instructions: Thank you for entrusting us with your care today. Call your surgeon tomorrow to reschedule your surgery. Follow up with your primary care provider for reevaluation of your asthma and cellulitis Return to the emergency department if your cellulitis does not improve or for any other new or worsening symptoms. Referrals: [facility] Scribe Attestation Portions of this note were transcribed by Rodri Samuels. I, , personally performed the history, physical exam and medical decision- making;I reviewed and confirmed the accuracy of the information in the transcribed note. Signed by Regina Reynoso. 04/16/17 23:37 Ani Johns MD Apr 16, 2017 20:14 Rodri Samuels Apr 16, 2017 22:19
[2017-04-16] MEDS ORDERED: 0.9% Sodium Chloride 1,000 ML IV ONE (21:00)
[2017-04-16] MEDS ORDERED: HYDROmorphone 0.5 mg/0.5 mL iSecure Syringe IVPUSH ONE (21:00)
[2017-04-16] MEDS ORDERED: predniSONE 20 mg Tablet PO ONE (21:00)
[2017-04-16 21:09] LABS: BASOPHILS % (AUTO) 0.2 % (0-3); EOSINOPHILS % (AUTO) 4.6 % (0-5); MONOCYTES % (AUTO) 7.4 % (4-12); Mean Corpuscular Hemoglobin 30.2 pg (27.0-35.0); Mean Corpuscular Volume 93.4 fL (81-100); NEUTROPHILS % (AUTO) 73.4 % (40-74); Platelet Count 372 bil/L (150-400)
[2017-04-16 21:18] LABS: Magnesium 1.9 mg/dL (1.6-2.6)
[2017-04-16 21:43] VITALS: PULSE 98; RESP 20; O2SAT 96
[2017-04-16 22:45] VITALS: BP 133/86; PULSE 86; RESP 14; O2SAT 100
[2017-04-16] MEDS ORDERED: PRE20 PO (23:18)
[2017-04-16] MEDS ORDERED: CEPH500C PO (23:18)
[2017-04-16 23:36] VITALS: BP 113/75; PULSE 93; RESP 15; O2SAT 94
== END 2017-04-16 23:40 | disposition home or self-care (01) ==
LOC: SED 19:49
DX: M67.48 Ganglion, other site (principal); L03.114 Cellulitis of left upper limb; J45.901 Unspecified asthma with (acute) exacerbation; I10 Essential (primary) hypertension; Z88.0 Allergy status to penicillin
CPT/HCPCS: 36415; 80048; 83735; 85025; 94640; 94664; 96361; 96374; 99284; J1170; J7030; J7620

== ENCOUNTER 2017-07-01 00:08 | Inpatient (IN) | payer OTHER ==
[~2017-07-01] VITALS: Ht 177.8 cm; Wt 81.0 kg
[2017-07-01] VITALS (23 sets, daily range): BP systolic 114–183; BP diastolic 67–121; PULSE 117–136; RESP 19–36; O2SAT 90–100
[~2017-07-01 00:08] MED LIST changes: +CEPH500C PO
[2017-07-01] MEDS ORDERED: Albuterol 2.5 mg/3 mL Inhalation Solution NEB ONE ×3 (00:12→01:20)
[2017-07-01] MEDS ORDERED: Albuterol-Ipratropium 3 mL Inhalation Solution ONE (00:12)
--- NOTE | 2017-07-01 00:18 | ED.REPORT ---
HPI-Dyspnea / Wheezing Date of Service Jul 01, 2017 ED Provider: Tang Marin MD The pt is a 47 y/o male w/ a hx of HTN and asthma presenting to the ED due to SOB onset 1599. The pt just left AMA from [facility] for similar symptoms today, went home, and had to use NEB treatment w/o relief. The pt was last hospitalized 3 months ago for similar symptoms. Nursing Notes Stated Complaint: ASTHMA ATTACK Chief Complaint: SOB Nursing Notes Reviewed: Yes Allergies: Coded Allergies: Penicillins (Verified Allergy, Severe, THROAT SWELLS SHUT, 07/01/17) Scheduled Beclomethasone Dipropionate (Qvar) 8.7 Gm Aer.w.adap 1 PUFF INHALATION BID Cephalexin (Cephalexin) 500 Mg Capsule 500 MG PO TID Prednisone (PredniSONE) 20 Mg Tablet 20 MG PO BID Take one twice a day for 3 days, then 1/2 tab twice a day for three days, then 1/2 tab daily until finished. Prednisone (PredniSONE) 20 Mg Tablet 40 MG PO DAILY Scheduled PRN Albuterol HFA (Proair HFA) 8.5 Gm Hfa.aer.ad 2 PUFFS INHALATION Q4H PRN PRN For Shortness of Breath Albuterol Neb Soln (Albuterol Neb Soln) 2.5 Mg/3 Ml Vial.neb 2.5 MG INHALATION Q4H PRN PRN For Shortness of Breath Hydrocodone-Acetaminophen 5-325 mg (Hydrocodone-Acetaminophen 5-325 mg) 1 Each Tablet 1-2 TABLET PO BID PRN PRN For Pain General Time Seen by MD: 00:11 Chief Complaint Shortness of breath Hx Obtained From: Patient Arrived By: Walk-in Sudden in Onset?: Yes Onset Occurred: 5 - 8 hours ago Symptom Duration: Since onset Recent Healthcare: No recent hospitalization, Recent doctor visit Similar Sx Previous: Yes Past Medical History Past Medical History Hypertension Asthma "Intestinal cyst" s/p removal Past Surgical History Removal of right "intestinal cyst" which was initially thought to be an inguinal hernia Reports: Tonsillectomy Smoking History Never Smoker Social History Alcohol Use: "Social" Drug Use: THC Other Social History: Good social support Ambulatory Status Independent Review of Systems Respiratory: Reports: Shortness of breath Complete sys rev & neg: except as marked. Physical Exam Initial Vital Signs Vital Signs (First) Date Time Temp Pulse Resp B/P Pulse Ox O2 Delivery O2 Flow Rate FiO2 07/01/17 00:14 36.4 128 36 183/121 93 Room Air 07/01/17 04:05 2 Initial VS: Reviewed, Vital signs abnormal Head / Eyes: Atraumatic, Normocephalic, PERRL ENT: Mucous membranes moist, Conjunctiva normal, No scleral icterus Extremities: Vascular intact, Neuro intact, No swelling, No tenderness Skin: Warm, Dry, No cyanosis Neurologic: Alert, Oriented, Nonfocal Psychiatric: Mood/affect normal, Behavior normal, Normal thought content General/Constitutional: Awake, Alert Neck: Atraumatic, Supple, Full range of motion Respiratory / Chest: Breath sounds = bilat Wheezing in all lung renee Pt is using accessory muscles to breathe Hyperventilating w/ frequent cough Cardiovascular: Regular rhythm, Heart sounds NL Heart Rate / Rhythm: Positive: Tachycardia Interpretation & Diagnostics Lab Results Interpretation Result Diagram: 07/01/176 07/01/17 0036 Test 07/01/17 00:36 White Blood Count 17.6th/mm3 (3.8-10.1) Red Blood Count 4.83mil/mm3 (4.40-5.80) Hemoglobin 14.5g/dL (13.8-17.2) Hematocrit 44.7% (41.0-50.0) Mean Corpuscular Volume 92.5fL (81-100) Mean Corpuscular Hemoglobin 30.0pg (27.0-35.0) Mean Corpuscular Hemoglobin Concent 32.4% (32.0-37.0) Red Cell Distribution Width 13.5% (12.3-15.4) Platelet Count 372bil/L (150-400) Neutrophils (%) (Auto) 77.0% (40-74) Lymphocytes (%) (Auto) 11.5% (14-46) Monocytes (%) (Auto) 8.5% (4-12) Eosinophils (%) (Auto) 2.5% (0-5) Basophils (%) (Auto) 0.2% (0-3) Sodium Level 143mEq/L (134-144) Potassium Level 3.8mEq/L (3.5-5.2) Chloride Level 98mEq/L (97-108) Carbon Dioxide Level 26mmol/L (18-29) Blood Urea Nitrogen 17mg/dL (6-24) Creatinine 0.90mg/dL (0.76-1.27) Estimat Glomerular Filtration Rate 97mL/min (>59) Glucose Level 134mg/dL (60-99) Calcium Level 9.6mg/dL (8.5-10.1) Magnesium Level 2.1mg/dL (1.6-2.6) Total Bilirubin 0.2mg/dL (0.0-1.2) Aspartate Amino Transf (AST/SGOT) 24U/L (0-50) Alanine Aminotransferase (ALT/SGPT) 25U/L (0-44) Alkaline Phosphatase 105U/L (25-150) Troponin T 0.010ug/L (0.0-0.011) Pro-B-Type Natriuretic Peptide 66pg/mL (0-121) Total Protein 8.4g/dL (6.4-8.4) Albumin 4.3g/dL (3.4-5.0) Lab Results Interpretation: Elevated white count of uncertain etiology ECG Interpretation ECG Interpretation: Rate 139 Sinus tachycardia LAD, consider L anterior fascicular bloc Abnormal R-wave progression, early transition Nonspecific T abnormalities, inferior leads Quality affected by respiratory changes Time: 00:43 Interpreted by: ED physician X-Ray Chest Interpretation Chest Xray Interpretation: Impression: No acute findings. View: Portable, 1 view Interpretation / Wet Read by: Wet read ED physician Re-Eval/Medical Decision Med Decision/Clinical Course 47-year-old male who was seen at [facility] for acute asthma attack. He was given nebulizers 2 treatments there but apparently no steroids. He left there AMA, and is not clear from the notes what the problem was. He arrives here by ambulance very short of breath. He was given multiple nebulizer treatments and IV magnesium and IV Solu-Medrol with some improvement. He was quite agitated by his respiratory distress so was given morphine and Ativan with marked improvement. Eventually cleared so he was not in respiratory distress. He is resting comfortably. He still has scattered expiratory wheezes in all lung renee. His chest x-ray is negative. I do not have an explanation for his elevated white count unless it reflects recent steroid use. I see no infectious process at this time. He will be admitted to the PCU for status asthmaticus to the hospitalist service. Source of Hx: Old records Re-Evaluation/Progress #1: Time of Eval: 03:11 Re-Evaluation/Progress Note: Pt rechecked. Pt is sleeping soundly. Pt has scattered expiratory wheezes but breathing has much improved. Re-Evaluation/Progress #2: Time of Eval: 03:55 Re-Evaluation/Progress Note: Pt rechecked. Informed pt of need for admission. Pt understands and agrees with plan for admission. All questions addressed. Consultation : Referral / Consult Name: Tim Bains MD Consulted With: Hospitalist Call Returned at: 04:13 Caramel Maker: Will see patient, Agrees with eval, Agrees with plan, Accepts admit Counseled Regarding: Diagnosis, Lab results, Need for admission Discharge & Departure Impression: Primary Impression: Status asthmaticus Asthma severity: unspecified severity Qualified Code: J45.902 - Unspecified asthma with status asthmaticus Disposition: ADMITTED TO HOSPITAL Discharge Condition All VS Reviewed: Yes Condition: Stable Referrals: NOPCP (PCP) Paloma Land MD Crit Care Except Billable Proc Time Spent: 30-74 minutes (70 minutes) Services Performed: Patient management by me, Time spent at bedside, Reviewing test results, Reviewing imaging, Discussing patient care, Documentation in record, Time with fam/surrogate Scribe Attestation Portions of this note were transcribed by Brad Ko. I, Dr. Marin personally performed the history, physical exam and medical decision-making; I reviewed and confirmed the accuracy of the information in the transcribed note. copies to: Paloma Land MD, Howard L MD Jul 01, 2017 00:18 Brad Ko Jul 01, 2017 00:24
[2017-07-01] MEDS ORDERED: MethylprednisoLONE Sodium Succinate 62.5 mg/mL 2 mL Inj IVPUSH ONE (00:25)
[2017-07-01] MEDS ORDERED: Magnesium Sulf 2 Gm/50mL Water 2 GM in IV Premix 1 EACH IV ONE (00:25)
[2017-07-01 00:48] LABS: BASOPHILS % (AUTO) 0.2 % (0-3); EOSINOPHILS % (AUTO) 2.5 % (0-5); MONOCYTES % (AUTO) 8.5 % (4-12); Mean Corpuscular Volume 92.5 fL (81-100); Platelet Count 372 bil/L (150-400)
[2017-07-01 01:15] LABS: TROPONIN T 0.01 ug/L (0.0-0.011)
[2017-07-01] MEDS ORDERED: 0.9% Sodium Chloride 1,000 ML IV ONE (01:30)
[2017-07-01 01:31] LABS: Magnesium 2.1 mg/dL (1.6-2.6)
[2017-07-01] MEDS ORDERED: Polyethylene Glycol (PEG) 17 Gm Powder PO PRN (04:20)
[2017-07-01] MEDS ORDERED: Ondansetron 2 mg/mL 2 mL Inj IVPUSH PRN (04:20)
[2017-07-01] MEDS ORDERED: Albuterol-Ipratropium 3 mL Inhalation Solution NEB PRN ×2 (04:20→08:00)
[2017-07-01] MEDS ORDERED: Alum-Mag Hydrox-Simeth 30 mL Suspension PO PRN (04:20)
--- NOTE | 2017-07-01 06:21 | PCM.HPMED ---
Subjective Date of Service Jul 01, 2017 Primary Provider: Admitting Physician: Tim Bains MD Primary Care Physician: Nopcherry Attending Physician: Maya Zapata DO Admit Status: From the Emergency Department, Full Admit, [facility] Telemetry Chief Complaint: Shortness of breathe History of Present Illness: Micheal Grimm is a 47 y/o male with Hypertension and asthma presenting to [facility] emergency department due to persistent shortness of breathe History limited to patient being partly sedated from treatment received in the emergency department. But the patient reported his symptoms started around 4 PM yesterday. He denies any coughing or fever. Patient was unclear of what set up his asthma. He tried his inhalers with no improvement. The pt just left AMA from [facility] for similar symptoms yesterday, went home, and had to use NEB treatment w/o relief. The pt was last hospitalized 3 months ago for similar symptoms. Case discussed with Dr Marin. Patient still having persistent wheezing despite receiving neb treatment, Solu-Medrol and will be admitted Review of Systems: unable to obtained due to patient being sedated Allergies Coded Allergies: Penicillins (Verified Allergy, Severe, THROAT SWELLS SHUT, 07/01/17) Home Medications From Last Discharge Summary, not yet confirmed Beclomethasone Dipropionate (Qvar) 8.7 Gm Aer.w.adap 1 PUFF INHALATION BID Prescribed by: NEHAL CORONA MD Prednisone (PredniSONE) 20 Mg Tablet 20 MG PO BID Take one twice a day for 3 days, then 1/2 tab twice a day for three days, then 1/2 tab daily until finished. Prescribed by: NEHAL CORONA MD As needed Albuterol HFA (Proair HFA) 8.5 Gm Hfa.aer.ad 2 PUFFS INHALATION Q4H PRN PRN For Shortness of Breath Prescribed by: NEHAL CORONA MD Albuterol Neb Soln (Albuterol Neb Soln) 2.5 Mg/3 Ml Vial.neb 2.5 MG INHALATION Q4H PRN PRN For Shortness of Breath Prescribed by: NEHAL CORONA MD Hydrocodone-Acetaminophen 5-325 mg (Hydrocodone-Acetaminophen 5-325 mg) 1 Each Tablet 1-2 TABLET PO BID PRN PRN For Pain Prescribed by: GONZALES WHITTINGTON MD [facility] Hypertension Asthma "Intestinal cyst" s/p removal . Surgical History Removal of right "intestinal cyst" which was initially thought to be an inguinal hernia Family History Cardiovascular disease on both mother and father's side Social History Hx Alcohol Use: Yes (states "every couple days") Hx Substance Use: Yes (Cannabis) Hx Tobacco Use: No Smoking Status: Never Smoker Living Arrangement: Alone Exam Vital Signs Vital Sign - Last Date Time Temp Pulse Resp B/P Pulse Ox O2 Delivery O2 Flow Rate FiO2 07/01/17 05:45 Supplement Oxygen 07/01/17 05:45 36.5 117 19 137/83 2.00 95 07/01/17 05:12 97 Intake and Output 06/30/17 06/30/17 07/01/17 Cumulative From/Thru 15:00 23:00 07:00 07/01/17 00:14 - 07/01/17 05:28 Intake Total 999 ml 999 ml Balance 999 ml 999 ml Intake IV Total 999 ml 999 ml Exam General: Oriented X3, Cooperative but sedated but answering yes and no questions Eyes: PERRLA, Scleral Anicteric Mouth: Mouth Normal, Mucous Membranes dry Neck: Supple, no Thyromegaly, trachea central. Chest & Lungs: Clear to auscultation & percussion with diffuse expiratory wheeze Cardiovascular: Normal S1, Normal S2, No Murmurs/Rubs/Gallops, Regular Rate/ Rhythm, (No JVD, no peripheral edema) Pulses: Radial (present and equal), Dorsalis Pedi (present and equal) Abdomen: Soft, Non-tender, Non-distended, Normoactive bowel tones. Musculoskeletal: Unremarkable. Normal range of motion, no swollen or erythematous joints Extremities: No edema, no cyanosis, no clubbing. Skin: No rashes. Warm and dry, no erythematous areas Neurological: Grossly neurologically intact, Normal Speech, Sensation Intact Lymphatic: Lymph nodes Cervical and Axillary not palpable. Lab and Diagnostics Labs Laboratory Tests Test 07/01/17 00:36 White Blood Count 17.6th/mm3 (3.8-10.1) Red Blood Count 4.83mil/mm3 (4.40-5.80) Hemoglobin 14.5g/dL (13.8-17.2) Hematocrit 44.7% (41.0-50.0) Mean Corpuscular Volume 92.5fL (81-100) Mean Corpuscular Hemoglobin 30.0pg (27.0-35.0) Mean Corpuscular Hemoglobin Concent 32.4% (32.0-37.0) Red Cell Distribution Width 13.5% (12.3-15.4) Platelet Count 372bil/L (150-400) Neutrophils (%) (Auto) 77.0% (40-74) Lymphocytes (%) (Auto) 11.5% (14-46) Monocytes (%) (Auto) 8.5% (4-12) Eosinophils (%) (Auto) 2.5% (0-5) Basophils (%) (Auto) 0.2% (0-3) Sodium Level 143mEq/L (134-144) Potassium Level 3.8mEq/L (3.5-5.2) Chloride Level 98mEq/L (97-108) Carbon Dioxide Level 26mmol/L (18-29) Blood Urea Nitrogen 17mg/dL (6-24) Creatinine 0.90mg/dL (0.76-1.27) Estimat Glomerular Filtration Rate 97mL/min (>59) Glucose Level 134mg/dL (60-99) Calcium Level 9.6mg/dL (8.5-10.1) Magnesium Level 2.1mg/dL (1.6-2.6) Total Bilirubin 0.2mg/dL (0.0-1.2) Aspartate Amino Transf (AST/SGOT) 24U/L (0-50) Alanine Aminotransferase (ALT/SGPT) 25U/L (0-44) Alkaline Phosphatase 105U/L (25-150) Troponin T 0.010ug/L (0.0-0.011) Pro-B-Type Natriuretic Peptide 66pg/mL (0-121) Total Protein 8.4g/dL (6.4-8.4) Albumin 4.3g/dL (3.4-5.0) Result Diagram: 07/01/17 0036 07/01/17 003 Assessment & Plan Micheal Grimm is a 47 y/o male with Hypertension and asthma presenting to [facility] emergency department due to persistent shortness of breathe 1. Acute Asthma exacerbation. Present on admission Likely triggered by a viral infection. Patient improving with no evidence of acute respiratory failure. - Continue Solumedrol now IV 40mg Q8H - Duonedbs PRN - Continue Qvar - Continue supplemental oxygen as needed - Viral PCR send - checking Urine drug screen 2. Sinus tachycardia. Present on admission Likely secondary to beta agonist bronchodilator therapy - monitor on telemetry - Pulmonary embolism on differential diagnosis but Well score is low 3. Leukocytosis, Acute. Present on admission Secondary to steroids patient recently received - No evidence of pneumonia or other infection 4 Hypertension Presumed stable - continue antihypertensive medications - Acetaminophen as needed for mild pain/fever/headache - Bowel regimen as needed - Antiemetic as needed Patient admitted under inpatient status with expected length of stay > 2 midnights for severity of present symptoms, complexities of treatment plan and risk for adverse event . Resuscitation Status: CPR: Attempt Resuscitation Tim Bains MD Jul 01, 2017 06:08
[2017-07-01] MEDS: Levalbuterol 1.25 mg/0.5mL Inhalation Solution NEB SCH ×7 (07:22→22:17)
--- NOTE | 2017-07-01 07:40 | NUR ---
Admit to PCC Pt. arrived via gurney from ED, to Room 2003. Lethargic answering in short sentences, following simple commands. Audible wheezing noted. Denies pain. MD at bedside to evaluate. Continuous oximetry in place, SPO2 95% on 2L NC. Tele: SR/ST Rate 119-120. Encourage to remain on bedrest. Pt. insisted to walk to bathroom, returned to bed with increase in SOB. Spo2 decreased to 91%, RT notified to eval and treat. Report given to on coming RN.
[2017-07-01] MEDS ORDERED: MethylprednisoLONE Sodium Succinate 40 mg/mL Inj IVPUSH SCH (08:30)
[2017-07-01] MEDS: MethylprednisoLONE Sodium Succinate 62.5 mg/mL 2 mL Inj IVPUSH SCH ×3 (09:04→20:12)
--- NOTE | 2017-07-01 09:20 | DRSVH ---
PROCEDURE: X-RAY CHEST ONE VIEW, PORTABLE ([id number]) INDICATIONS: dyspnea TECHNIQUE: One view of the chest was acquired. COMPARISON: [facility], CR, XR CHEST 1VW (PORTABLE), 03/31/2017, 2:44. FINDINGS: Surgical changes and devices: None. Lungs and pleura: No pleural effusions or pneumothorax. Lungs are clear. Mediastinum: Mediastinal contours appear normal. Heart size is normal. Bones and chest wall: No suspicious bony lesions. Overlying soft tissues appear unremarkable. IMPRESSION: No acute pulmonary process. Dictated by: Cindy Gregg M.D. on 07/01/2017 at 9:18 Approved by: Cindy Gregg M.D. on 07/01/2017 at 9:19
--- NOTE | 2017-07-01 10:53 | PCM.PNMED ---
Subjective Date of Service Jul 01, 2017 Subjective Patient was seen and examined today. He states that he remains short of breath and when questioned states that he has pain in his chest from breathing. He is saturating well on room air Nursing staff states no concerns. Exam Vital Signs Vital Sign - Last Date Time Temp Pulse Resp B/P Pulse Ox O2 Delivery O2 Flow Rate FiO2 07/01/17 09:30 122 24 98 Nasal Cannula 2.00 07/01/17 07:52 36.4 137/94 07/01/17 05:45 95 Intake and Output 06/30/17 06/30/17 07/01/17 Cumulative From/Thru 15:00 23:00 07:00 07/01/17 00:14 - 07/01/17 05:28 Intake Total 999 ml 999 ml Balance 999 ml 999 ml Intake IV Total 999 ml 999 ml Exam General: Somnolent, somewhat difficult to arouse but does awake to answer questions. HEENT: Normocephalic, atraumatic. External ears without defect. Pupils equal, round, and reactive to light and accommodation. Unable to keep eyes open. Neck: Supple with full range of motion. No jugular venous distension. No bruits. No lymphadenopathy or thyromegaly. Cardiovascular: Tachycardiac with a rate in the 120s with no murmurs, rubs, or gallops appreciated Pulmonary: Diffuse wheezes throughout, no crackles Abdomen: Bowel tones present. Soft, nontender, nondistended. No hepatosplenomegaly or masses appreciated. Extremities: No clubbing, cyanosis, edema, or lymphadenopathy appreciated. Skin: Patient laying uncovered in bed lower extremities cool, no rashes noted Neurological: Cranial nerves grossly intact. Normal muscle strength, tone, and bulk. Psychiatric: Alert and oriented to person, place, and time. IVs and Medications Medications Reviewed: Medications were reviewed in detail Lab and Diagnostics Result Diagram: 07/01/17 0036 07/01/17 0036 Assessment & Plan Micheal Grimm is a 47 y/o male with Hypertension and asthma presenting to [facility] emergency department due to persistent shortness of breathe Acute Asthma exacerbation. Present on admission, active -Likely triggered by a viral infection. Patient improving with no evidence of acute respiratory failure. - Continue Solumedrol IV 60mg Q6H - Xopenex PRN every hour, scheduled every 2 hours - Continue Qvar 2 puffs BID - Continue supplemental oxygen as needed - Viral PCR pending - Urine tox screen positive for amphetamines. Patient's significant other states that he takes Ritalin for ADHD Sinus tachycardia. Present on admission, active -Likely secondary to beta agonist bronchodilator therapy - Continue to monitor on telemetry Leukocytosis, Acute. Present on admission, active -White count is 17.6 today -Secondary to steroids patient recently received - No evidence of pneumonia or other infection Hypertension, chronic, not present on admission, stable - continue antihypertensive medications - Acetaminophen as needed for mild pain/fever/headache - Bowel regimen as needed - Antiemetic as needed Disposition: Patient will likely require several more days of inpatient treatment and monitoring. He is still on Q2hr breathing treatments. Patient states that he would like to be full code with CPR and intubation and would like for his girlfriend Sowmya to be the point of contact and the one to make all of his medical decisions if he is unable to make them. . Resuscitation Status: CPR: Attempt Resuscitation Attending Statement The patient was seen and examined together with Dr. Hanley on 07/01/17 and I have added additional information to the note above. Jose Carlos Hanley DO Jul 01, 2017 10:53 Maya Zapata DO Jul 01, 2017 12:22
[2017-07-01] MEDS ORDERED: METH5TAB88 PO (10:55)
--- NOTE | 2017-07-01 10:55 | NUR ---
Med Rec Med Rec completed, patient interview. patient reports that he takes Ritalin once daily in the AM, can't remember dose. [facility] listed in chart and [facility] in [place] (pharmacies confirmed by patient) have no record of ever filling Ritalin or any other medication for ADHD.
[2017-07-01] MEDS ORDERED: Levalbuterol 1.25 mg/0.5mL Inhalation Solution NEB PRN (12:20)
[2017-07-01] MEDS: Fluticasone 100 mCg Inhaler INHALATION SCH ×2 (14:42→20:13)
[2017-07-01] MEDS: Arformoterol 15 mCg/2 mL Inhalation Solution NEB SCH ×2 (17:57→20:15)
--- NOTE | 2017-07-01 18:07 | NUR ---
Respiratory: On initial assessment patient appeared to be very drowsy SpO2: low 80's and as patient was awakened he began to be tachypnic with RR high 20's. SpO2 increased to low 90's. Lung sounds tight with wheezes throughout. RT was called to assess and MD was notified. MD also notified of Tele: Sinus Tachycardia 120-130's. Neb treatments were changed and patient is now receiving scheduled Xoponex Nebs Q2 hours. Patient was placed on 2L NC. SpO2: now mid 90's on 2L NC. RR 18 while asleep to high 20's. Patient continues to be A&O X3. Uses call light for needs. Frequent rounding in place.
[2017-07-01] MEDS ORDERED: Fluticasone 100 mCg Inhaler INHALATION SCH (20:30)
[2017-07-02] VITALS (18 sets, daily range): BP systolic 124–146; BP diastolic 67–89; PULSE 85–127; RESP 17–28; O2SAT 91–96
[2017-07-02] MEDS: Levalbuterol 1.25 mg/0.5mL Inhalation Solution NEB SCH ×8 (00:38→21:45)
[2017-07-02] MEDS: MethylprednisoLONE Sodium Succinate 62.5 mg/mL 2 mL Inj IVPUSH SCH ×3 (02:26→18:09)
--- NOTE | 2017-07-02 02:35 | NUR ---
resp: pt. is breathing better, less sob, less coughing, sats 94% on 2Lo2, heart rate in 120's. pt. receiving neb tx q2hrs.
[2017-07-02 03:57] LABS: BASOPHILS % (AUTO) 0 % (0-3); EOSINOPHILS % (AUTO) 0 % (0-5); MONOCYTES % (AUTO) 3.5 % (4-12); Mean Corpuscular Hemoglobin 30.1 pg (27.0-35.0); Mean Corpuscular Volume 93.2 fL (81-100); NEUTROPHILS % (AUTO) 93.5 % (40-74); Platelet Count 350 bil/L (150-400)
[2017-07-02] MEDS: Pantoprazole 40 mg ER24 Tablet PO SCH (04:20)
[2017-07-02] MEDS: Fluticasone 100 mCg Inhaler INHALATION SCH ×2 (05:39→20:14)
[2017-07-02] MEDS: Arformoterol 15 mCg/2 mL Inhalation Solution NEB SCH ×2 (07:28→21:45)
[2017-07-02] MEDS ORDERED: Levalbuterol 1.25 mg/0.5mL Inhalation Solution NEB SCH (08:30)
[2017-07-02] MEDS ORDERED: Levalbuterol 1.25 mg/0.5mL Inhalation Solution NEB PRN (08:30)
--- NOTE | 2017-07-02 16:22 | NUR ---
Respiratory, Family Issues 0940 - Discussed his care with Dr. Zapata, Dr. Vazquez, and the rest of the multidisciplinary care team during morning rounds. Patient had asked if he could have a shower today. Checked with Dr. Zapata about this who said he could be off telemetry for a shower. 1050 - Spoke to Respiratory Therapist (RT) Nathaly Gill, who said that if he took a shower his O2 would likely need to be increased and he would have to take his time and not overexert himself. Currently on 2L of O2 via nasal cannula. 1216 - Spoke to Nathaly who said she provided detailed education to him about his asthma, medications, and needing to get pulmonology follow-up care once he discharges. She said that he did not seem to grasp the information and would need repeated education. About 1600 - Staff heard him yelling. Another nurse went into the room to find him angrily shouting at his girlfriend and telling her to leave now. She left. This nurse went in a few minutes later to check on him and he did not want to talk about the incident. Care continues.
--- NOTE | 2017-07-02 16:37 | NUR ---
Social Work- Initial Assessment Data: See Initial Assessment for additional information. Pt is a 47 year old male admitted [place] for status asthmaticus per H&P. Pt's insurance is [employer]. Pt has no PCP listed. Pt's readmit risk score is not listed at this time. FRANNIE met with pt at bedside to discuss d/c plan, SW role explained. Pt alert and oriented x3. Pt resides in his [place] in [place]. Pt has no permanent housing at this time. Pt states he is aware of local resources, he just has not been able to find an apartment because he works so often. Pt declined [facility] housing [place] Pt reports that he is looking for a PCP at this time, declined assistance. Pt is independent with ADLs and self-care. Pt has no HH or SNF history. No LTC or VA benefits. Pt has home nebulizers, unknown which company provides them. Pt declined DPOA information at bedside. SW provided d/c planning checklist, phone number, and plan on whiteboard. Pt likely to d/c home with g/f or mother to transport via POV. SW will continue to follow for needs. Assessment: Pt who is independent with ADLs and self-care Plan: Pt likely to d/c home with g/f or mother to transport via POV. SW will continue to follow for needs. ISIS Esparza Addendum: 07/02/17 at 1642 by MAHNAZ PETIT SS Amended: Links added.
--- NOTE | 2017-07-02 17:42 | PCM.PNMED ---
Subjective Date of Service Jul 02, 2017 Subjective Overnight: Breathing reported to have gotten better maintaining saturations 94% on nasal cannula though remained tachycardic. Continue to receive nebulizer treatments every 2 hours Patient seen and examined. Today patient states he would like to go home though does admit that he continues to have difficulty breathing and even minimally exerting himself. Denies chest pain or pain with respirations. Patient's girlfriend present in room at time of interview.. All questions answered. Exam Vital Signs Vital Sign - Last Date Time Temp Pulse Resp B/P Pulse Ox O2 Delivery O2 Flow Rate FiO2 07/02/17 06:24 118 07/02/17 04:30 20 96 Nasal Cannula 2.00 07/02/17 04:02 36.8 124/67 07/01/17 05:45 95 Intake and Output 07/01/17 07/01/17 07/02/17 Cumulative From/Thru 15:00 23:00 07:00 07/01/17 00:14 - 07/02/17 05:20 Intake Total 640 ml 353 ml 1992 ml Output Total 700 ml 700 ml Balance -60 ml 353 ml 1292 ml Intake Oral 640 ml 353 ml 993 ml IV Total 999 ml Output Urine Total 700 ml 700 ml # Voids 3 3 Exam General: Awake and alert laying in hospital bed in no acute distress, well- developed, appropriately interactive HEENT: Normocephalic, atraumatic. External ears without defect. Pupils equal, round, and reactive to light and accommodation. Neck: Supple with full range of motion. No jugular venous distension. Cardiovascular: Regular rate and rhythm with no murmurs, rubs, or gallops appreciated Pulmonary: Bilateral diffuse wheezes. Poor air movement. Increased respiratory effort with no use of accessory muscles Abdomen: Soft, nontender, nondistended. Bowel tones present Extremities: No clubbing, cyanosis, edema Skin: Normal temperature, turgor, and texture Neurological: Cranial nerves grossly intact. Psychiatric: Normal mood and affect. Alert and oriented to person, place, and time. IVs and Medications Medications Reviewed: Medications were reviewed in detail Lab and Diagnostics Result Diagram: 07/02/17 0335 07/02/17334 X-Rays, CTs and MRIs . X-RAY CHEST ONE VIEW, PORTABLE IMPRESSION: No acute pulmonary process. Dictated by: Cindy Gregg M.D. on 07/01/2017 Assessment & Plan Micheal Grimm is a 47 y/o male with Hypertension and asthma admitted secondary to asthma exacerbation. Hospital day 2 Acute Asthma exacerbation. Present on admission, active -Likely triggered by a viral infection. PCR positive for rhinovirus - Solumedrol IV 60mg Q8H - Xopenex PRN every 2 hour, scheduled every 3 hours - Continue Qvar 2 puffs BID - Continue supplemental oxygen as needed - Urine tox screen positive for amphetamines. Patient's significant other states that he takes Ritalin for ADHD Sinus tachycardia. Present on admission, improving -Likely secondary to beta agonist bronchodilator therapy, with concomitant viral infection -Rate slowly trending down, remaining hemodynamic state within normal limits -Continue to monitor on telemetry Leukocytosis, Acute. Present on admission, active -White count 17.6 on admission, 35.3 today -Secondary to steroids patient recently received -Pro calcitonin pending, no current indication for antibiotics -Continue to monitor Hypertension, chronic, not present on admission, stable - Currently hemodynamically stable - No home antihypertensive medications listed - Continue to monitor - Acetaminophen as needed for mild pain/fever/headache - Bowel regimen as needed - Antiemetic as needed Disposition: Patient will remain inpatient status, breathing treatments have been increased to every 3 hours. Pain Evaluation: Adequate Pain Control GI Prophylaxis: Proton Pump Inhibitor Resuscitation Status: CPR: Attempt Resuscitation Attending Statement The patient was seen and examined together with Dr. Vazquez on 07/02/17 and I have added additional information to the note above. SIGRID VAZQUEZ DO Jul 02, 2017 06:57 Maya Zapata DO Jul 02, 2017 17:47
[2017-07-02] MEDS: guaiFENesin 600 mg ER12 Tablet PO SCH (20:14)
[2017-07-03] VITALS (10 sets, daily range): BP systolic 118–142; BP diastolic 73–99; PULSE 78–125; RESP 16–22; O2SAT 88–95
[2017-07-03] MEDS: Levalbuterol 1.25 mg/0.5mL Inhalation Solution NEB SCH ×3 (00:19→07:50)
[2017-07-03] MEDS: MethylprednisoLONE Sodium Succinate 62.5 mg/mL 2 mL Inj IVPUSH SCH (00:29)
[2017-07-03 03:10] LABS: BASOPHILS % (AUTO) 0.1 % (0-3); EOSINOPHILS % (AUTO) 0 % (0-5); MONOCYTES % (AUTO) 3.7 % (4-12); Mean Corpuscular Hemoglobin 30.5 pg (27.0-35.0); Mean Corpuscular Volume 93.5 fL (81-100); NEUTROPHILS % (AUTO) 92.5 % (40-74); Platelet Count 345 bil/L (150-400)
[2017-07-03] MEDS: Arformoterol 15 mCg/2 mL Inhalation Solution NEB SCH (07:51)
[2017-07-03] MEDS ORDERED: predniSONE 20 mg Tablet PO SCH (09:20)
[2017-07-03] MEDS: guaiFENesin 600 mg ER12 Tablet PO SCH (09:26)
[2017-07-03] MEDS: Fluticasone 100 mCg Inhaler INHALATION SCH (09:26)
[2017-07-03] MEDS: Pantoprazole 40 mg ER24 Tablet PO SCH (09:27)
[2017-07-03] MEDS ORDERED: Levalbuterol 1.25 mg/0.5mL Inhalation Solution NEB PRN ×2 (12:30→14:30)
[2017-07-03] MEDS ORDERED: Levalbuterol 1.25 mg/0.5mL Inhalation Solution NEB SCH ×2 (12:30→14:30)
[2017-07-03] MEDS ORDERED: PRE20 PO (16:00)
[2017-07-03] MEDS ORDERED: PRE10 PO (16:03)
--- NOTE | 2017-07-03 16:08 | PCM.DIMED ---
Jose Carlos Hanley DO 07/03/17 1608: Discharge Instructions Date of Service Jul 03, 2017 Dates of Hospitalization Jul 01, 2017 at 04:26 Discharge Diagnosis Discharge Diagnosis COPD exacerbation Hypertension Medication Instructions Additional med instructions We're sending you home with a prednisone taper. This begins with 6 pills on the first day for 3 days, then 5 pills for 3 days, then 4 pills for 3 days, then 3 pills for 3 days, then 2 pills for 3 days, then 1 pill for 3 days. Continue to use your home albuterol inhaler and your other regularly prescribed medications as directed. Test Results Test Results Your chest x-ray did not show any signs of pneumonia. Diet Discharge Diet: Heart Healthy Activity Discharge Activity: Limited until seen by PCP Call your provider Call your provider for: Fever or Chills, Shortness of breath, Bleeding, Chest pain, Vomitting, Excessive diarrhea, Weakness (unilateral) Patient Instructions Patient Instructions We are going to make an appointment for you to see a primary care physician in the next 1-2 weeks. Please keep this appointment. Please seek medical attention if you have worsening shortness of breath. Follow-up Provider: [facility] Follow-up with PCP in: 1 week Maya Zapata DO 07/03/17 1615: Discharge Instructions Patient Instructions Patient Instructions If you notice that you have to use your nebulizers less than 6 hours apart then please come back to the ED as your asthma is starting to go out of control again. Please do not over exert yourself or participate in physical activity until you follow up with your PCP as this can also exacerbate your asthma. Attending's Statement The patient was seen and examined together with Dr. Hanley on 07/03/17 and I have added additional information to the note above. Jose Carlos Hanley DO Jul 03, 2017 16:08 Maya Zapata DO Jul 03, 2017 16:15
--- NOTE | 2017-07-03 18:02 | NUR ---
Discharge Pt discharged to home with transportation provided by his girlfriend. Pt's IV dc'd intact. Telemetry was removed and tech notified. Pt's discharge instructions, medications and follow up appointments were reviewed. All patients questions were answered and he voiced understanding. Pt's belongings were gathered for transportation with pt. Pt was escorted to lobby by COMMUNITY OUTREACH COORDINATOR, as requested, to await arrival of his girlfriend.
--- NOTE | 2017-07-03 18:22 | PCM.DC.MED ---
Discharge Summary Date of Service Jul 03, 2017 Dates of Hospitalization Date of Hospital Admission Jul 01, 2017 at 04:26 Date of Discharge: Jul 03, 2017 Providers: Admitting Physician: Tim Bains MD Primary Care Physician: Jackeline Attending Physician: Maya Zapata DO Diagnosis at Time of Discharge Diagnosis at Time of Discharge Asthma exacerbation Hypertension Procedures XRay, CTs & MRIs . X-RAY CHEST ONE VIEW, PORTABLE IMPRESSION: No acute pulmonary process. Dictated by: Cindy Gregg M.D. on 07/01/2017 ECG 12 Lead Performed 07/01/17, sinus tachycardia with rate of 139. No ST changes. Brief History Micheal Grimm is a 47 y/o male with Hypertension and asthma that presented to [facility] emergency department due to persistent shortness of breathe. History limited to patient being partly sedated from treatment received in the emergency department. But the patient reported his symptoms started around 4 PM on day of admission. He denies any coughing or fever. Patient was unclear of what set off his asthma. He tried his inhalers with no improvement. The pt just left [facility]MA from [facility] for similar symptoms day previous, went home, and had to use NEB treatment w/o relief. The pt was last hospitalized 3 months ago for similar symptoms. Case discussed with Dr Marin. Patient still having persistent wheezing despite receiving neb treatment. During his stay, patient was started on Solu-Medrol IV 60 mg every 6 hours, and was eventually transitioned to oral. He received Xopenex nebulizer treatments every 2 hours initially, but was eventually able to space them out to every 6 hours. His hypertension was controlled on his home medications during his stay. On day of discharge, 07/03/17, patient's symptoms were controlled, his vital signs were stable. He was sent home with a prednisone taper and was told to resume his albuterol inhaler and other home medications. Patient was released to resume work on 07/05/17. Hospital Course See below for detailed hospital course Acute Asthma exacerbation. Present on admission, stable -Likely triggered by a viral infection. PCR positive for rhinovirus -Patient was prescribed steroid taper upon discharge Sinus tachycardia. Present on admission, resolved -Likely secondary to beta agonist bronchodilator therapy, with concomitant viral infection Leukocytosis, Acute. Present on admission, active -White count 17.6 on admission, reported 7 on day of discharge -Secondary to steroids patient recently received Hypertension, chronic, not present on admission, stable - Currently hemodynamically stable Disposition: Home Exam Vital Signs (Last) Date Time Temp Pulse Resp B/P Pulse Ox O2 Delivery O2 Flow Rate FiO2 07/03/17 16:33 78 20 92 Room Air 78 20 07/03/17 12:14 36.7 142/90 07/03/17 11:21 1.50 07/01/17 05:45 95 Exam General: No acute distress, well-developed, well-nourished, appropriately interactive HEENT: Normocephalic, atraumatic. Neck: Supple with full range of motion. No jugular venous distension. No bruits. No lymphadenopathy or thyromegaly. Cardiovascular: Regular rate and rhythm with no murmurs, rubs, or gallops appreciated Pulmonary: Slight wheezes throughout, no rhonchi or crackles. Good air movement Abdomen: Bowel tones present. Soft, nontender, nondistended. No hepatosplenomegaly or masses appreciated. Extremities: No clubbing, cyanosis, edema, or lymphadenopathy appreciated. Skin: Normal temperature, turgor, and texture, several small healing eschar on left forearm and dorsal surface of hand. Neurological: Cranial nerves grossly intact. Normal muscle strength, tone, and bulk. Reflexes, coordination, and sensory function within normal limits. No known gait impairment. Psychiatric: Normal mood and affect. Alert and oriented to person, place, and time. Test 07/01/17 00:36 07/01/17 06:40 07/02/17 03:35 07/02/17 17:45 Magnesium Level 2.1mg/dL (1.6-2.6) Troponin T 0.010ug/L (0.0-0.011) Pro-B-Type Natriuretic Peptide 66pg/mL (0-121) Urine Opiates Screen Negative Urine Methadone Screen Negative Urine Barbiturates Screen Negative Urine Amphetamines Screen Positive Urine Benzodiazepines Screen Negative Urine Cocaine Metabolite Screen Negative Urine Cannabinoids Screen Negative Procalcitonin 0.04ng/mL (0.00-0.08) Test 07/03/17 02:50 White Blood Count 30.7th/mm3 (3.8-10.1) Red Blood Count 4.59mil/mm3 (4.40-5.80) Hemoglobin 14.0g/dL (13.8-17.2) Hematocrit 42.9% (41.0-50.0) Mean Corpuscular Volume 93.5fL (81-100) Mean Corpuscular Hemoglobin 30.5pg (27.0-35.0) Mean Corpuscular Hemoglobin Concent 32.6% (32.0-37.0) Red Cell Distribution Width 13.5% (12.3-15.4) Platelet Count 345bil/L (150-400) Neutrophils (%) (Auto) 92.5% (40-74) Lymphocytes (%) (Auto) 3.1% (14-46) Monocytes (%) (Auto) 3.7% (4-12) Eosinophils (%) (Auto) 0% (0-5) Basophils (%) (Auto) 0.1% (0-3) Band Neutrophils % 1% (1-5) Sodium Level 138mEq/L (134-144) Potassium Level 5.0mEq/L (3.5-5.2) Chloride Level 101mEq/L (97-108) Carbon Dioxide Level 26mmol/L (18-29) Blood Urea Nitrogen 22mg/dL (6-24) Creatinine 0.79mg/dL (0.76-1.27) Estimat Glomerular Filtration Rate 112mL/min (>59) Glucose Level 181mg/dL (60-99) Calcium Level 9.1mg/dL (8.5-10.1) Total Bilirubin 0.2mg/dL (0.0-1.2) Aspartate Amino Transf (AST/SGOT) 80U/L (0-50) Alanine Aminotransferase (ALT/SGPT) 101U/L (0-44) Alkaline Phosphatase 102U/L (25-150) Total Protein 6.6g/dL (6.4-8.4) Albumin 3.6g/dL (3.4-5.0) Discharge Medications Discharge Medications Beclomethasone Dipropionate (Qvar) 8.7 Gm Aer.w.adap 1 PUFF INHALATION BID Prescribed by: NEHAL CORONA MD Cephalexin (Cephalexin) 500 Mg Capsule 500 MG PO TID Prescribed by: SUSANNAH ROBLES MD Methylphenidate (Methylphenidate) 5 Mg Tablet 5 MG PO QAM (Reported) Prednisone (PredniSONE) 10 Mg Tablet 10 MG PO DAILY Prescribed by: BRAYDEN MOSER DO As needed Albuterol HFA (Proair HFA) 8.5 Gm Hfa.aer.ad 2 PUFFS INHALATION Q4H PRN PRN For Shortness of Breath Prescribed by: NEHAL CORONA MD Albuterol Neb Soln (Albuterol Neb Soln) 2.5 Mg/3 Ml Vial.neb 2.5 MG INHALATION Q4H PRN PRN For Shortness of Breath Prescribed by: NEHAL CORONA MD Hydrocodone-Acetaminophen 5-325 mg (Hydrocodone-Acetaminophen 5-325 mg) 1 Each Tablet 1-2 TABLET PO BID PRN PRN For Pain Prescribed by: GONZALES WHITTINGTON MD Additional med instructions We're sending you home with a prednisone taper. This begins with 6 pills on the first day for 3 days, then 5 pills for 3 days, then 4 pills for 3 days, then 3 pills for 3 days, then 2 pills for 3 days, then 1 pill for 3 days. Continue to use your home albuterol inhaler and your other regularly prescribed medications as directed. Followup Plan Disposition: Home Discharge Diet: Heart Healthy Discharge Activity: Limited until seen by PCP Patient Instructions If you notice that you have to use your nebulizers less than 6 hours apart then please come back to the ED as your asthma is starting to go out of control again. Please do not over exert yourself or participate in physical activity until you follow up with your PCP as this can also exacerbate your asthma. Follow-up Provider: [facility] Follow-up with PCP in: 1 week Time spent Greater than 35 minutes Attending Statement The patient was seen and examined together with Dr. Moser on 07/03/17 and I have added additional information to the note above. copies to: [facility] Brayden Moser DO Jul 03, 2017 18:22 Maya Zapata DO Jul 03, 2017 18:32 Patient Instructions If you notice that you have to use your nebulizers less than 6 hours apart then please come back to the ED as your asthma is starting to go out of control again. Please do not over exert yourself or participate in physical activity until you follow up with your PCP as this can also exacerbate your asthma. Follow-up Provider: [facility] Follow-up with PCP in: 1 week Time spent Greater than 35 minutes Brayden Moser DO Jul 03, 2017 18:22
--- NOTE | 2017-07-04 15:05 | NUR ---
Social Work: Discharge/Multidisciplinary Rounds D: Pt discussed in multidisciplinary rounds; the patient is medically stable for discharge home. Provider and RN identify no sw needs. Patient is ambulating I and participating in his own self care. [employer] L[employer] TECHNICIAN met with patient at bedside to confirm dcp. Patient agrees with plan to d/c home to his car. No concerns or barriers identified. patient has arranged for private transportation back to his car. He has declined community resources for housing. A: Pt who is I at baseline and lives in [place]. P: Patient to discharge back to homelessness/car with no sw needs. [employer]
== END 2017-07-03 17:39 | disposition home or self-care (01) | DRG 203 ==
LOC: SED 00:18 → PCC 04:26
PROVIDERS: ADMIT Hospitalist; ATTEND Neuromusculoskeletal Medicine & OMM
PROC: 3E033GC Introduction of Other Therapeutic Substance into Peripheral Vein, Percutaneous Approach (ICD-10-PCS; principal; 2017-07-01)
DX: J45.901 Unspecified asthma with (acute) exacerbation (principal); I10 Essential (primary) hypertension; R00.0 Tachycardia, unspecified; F12.90 Cannabis use, unspecified, uncomplicated; T38.0X5A Adverse effect of glucocorticoids and synthetic analogues, initial encounter; D72.829 Elevated white blood cell count, unspecified; Z88.0 Allergy status to penicillin; Z79.51 Long term (current) use of inhaled steroids